=== PATIENT | male | born 1975 | race American Indian/Alaskan Native ===

== ENCOUNTER 2021-05-29 02:14 | Emergency (ER) | payer SELFPAY ==
[2021-05-29 03:07] VITALS: BP 155/76
--- NOTE | 2021-05-29 04:36 | Emergency Department Report ---
- General Chief Complaint: Extremity Injury, Upper Stated Complaint: CUT FINGER Time Seen by Provider: 05/29/21 03:30 Source: patient Mode of arrival: Ambulatory Limitations: No Limitations - History of Present Illness Initial Comments: 45-year-old F [place] male employee at [employer] was trying to get ready to clean the machine while taking off the blade with a screwdriver states that slipped causing the blade to come across his index finger on the right hand resulting in lacerations at the metacarpophalangeal joint and the upper metatarsal posterior aspect. Bleeding is controlled with direct pressure. Mild pain with movement and palpation. No foreign bodies visualized Extremity Location: Right: Hand Place: home Patient Tetanus UTD: No Associated Symptoms: none Treatments Prior to Arrival: cold therapy - Related Data Allergies Allergy/AdvReac Type Severity Reaction Status Date / Time No Known Allergies Allergy Verified 05/29/21 03:07 ED Review of Systems ROS: Stated complaint: CUT FINGER Other details as noted in HPI Comment: All other systems reviewed and negative ED Past Medical Hx - Past Medical History Previous Medical History?: No - Surgical History Past Surgical History?: No - Social History Smoking Status: Never Smoker Substance Use Type: None ED Physical Exam - General Limitations: No Limitations General appearance: alert, in no apparent distress - Head Head exam: Present: atraumatic, normocephalic - Eye Eye exam: Present: normal appearance - ENT ENT exam: Present: mucous membranes moist - Neck Neck exam: Present: normal inspection - Respiratory Respiratory exam: Present: normal lung sounds bilaterally. Absent: respiratory distress - Cardiovascular Cardiovascular Exam: Present: regular rate, normal rhythm. Absent: systolic murmur, diastolic murmur, rubs, gallop - GI/Abdominal GI/Abdominal exam: Present: soft, normal bowel sounds - Rectal Rectal exam: Present: deferred - Extremities Exam Extremities exam: Present: normal inspection, tenderness (Laceration to the the dorsum of the right hand at the metacarpophalangeal joint x1-1/2 cm. A simple laceration to the proximal phalangeal) - Back Exam Back exam: Present: normal inspection - Neurological Exam Neurological exam: Present: alert, oriented X3, CN II-XII intact - Psychiatric Psychiatric exam: Present: normal affect, normal mood - Skin Skin exam: Present: warm, dry, intact, normal color. Absent: rash ED Course Vital Signs 05/29/21 03:00 Temperature 98.0 F Pulse Rate 77 Respiratory 18 Rate Blood Pressure 155/76 [Left] O2 Sat by Pulse 98 Oximetry - Laceration /Wound Repair Right Finger Wound Location: upper extremity Wound Length (cm): 2 Wound's Depth, Shape: linear Wound Explored: clean Betadine Prep?: Yes Anesthesia: 1% Lidocaine Volume Anesthetic (ccs): 2 Wound Debrided: minimal Wound Repaired With: sutures Suture Size/Type: 3:0 Number of Sutures: 4 Critical care attestation.: If time is entered above; I have spent that time in minutes in the direct care of this critically ill patient, excluding procedure time. ED Disposition Clinical Impression: Laceration of finger Disposition: 01 HOME / SELF CARE / HOMELESS Is pt being admited?: No Does the pt Need Aspirin: No Condition: Stable Instructions: Wound Care, Adult, Laceration Care, Adult, [id number], Sutures, Luciano, or Adhesive Wound Closure, [id number] Additional Instructions: To be sure to follow-up with to be evaluated for possible suture removal in 10 days Referrals: [facility] [Provider Group] - 3-5 Days
== END 2021-05-29 04:40 | disposition home or self-care (01) ==
LOC: ED 02:14
DX: S61.210A Laceration without foreign body of right index finger without damage to nail, initial encounter (principal); W26.8XXA Contact with other sharp object(s), not elsewhere classified, initial encounter; Y93.89 Activity, other specified; Y92.89 Other specified places as the place of occurrence of the external cause; Y99.8 Other external cause status
CPT/HCPCS: 99282